=== PATIENT | male | born 1965 | race Hispanic/Latino ===

== ENCOUNTER 2020-08-16 21:41 | Emergency (ER) | payer SELFPAY ==
--- NOTE | 2020-08-16 22:56 | RAD ---
Exam: Chest one view HISTORY:Pain. Syncope. Comparison: None FINDINGS: Cardiac silhouette:Upper normal cardiac silhouette Aorta: Unremarkable Pulmonary vessels: Mild pulmonary vascular prominence Costophrenic angles: Clear LUNGS: Scattered interstitial opacities which may represent edema or infiltrate. Pneumothorax: None Osseous abnormalities: None IMPRESSION: 1. Prominence of vasculature and interstitium. Correlate for edema versus infiltrate.
[2020-08-16 23:19] LABS: #Eosinphils 0.2 thou/uL (0.0-0.7); #Lymphocytes 1.2 thou/uL (1.20-3.40); #Monocytes 0.8 thou/uL (0.11-0.59); #Neutrophils 3.2 thou/uL (1.40-6.50); %Basophils 0.3 % (0.0-1.0); %Eosinophils 4.4 % (0.0-10.0); %Lymphocytes 22.6 % (21.0-51.0); %Neutrophils 58.7 % (42.0-75.0); Hemoglobin 12.6 g/dL (14.0-18.0); Mean Corpuscular HGB CONC 33.8 g/dL (32.0-36.0); Mean Corpuscular Hemoglobin 28.7 pg (27.0-31.0); Mean Corpuscular Volume 84.9 fL (78.0-98.0); Mean Platelet Volume 8.3 fL (7.4-10.4); Platelet Count 185 thou/uL (130-400); Red Blood Cell (RBC) Count 4.38 mill/uL (4.70-6.10); White Blood Cell (WBC) Count 5.5 thou/uL (4.8-10.8)
[2020-08-16 23:40] LABS: ALT (SGPT) 13 U/L (8-55); AST (SGOT) 20 U/L (5-34); Albumin 4.1 g/dL (3.5-5.0); Alkaline Phosphatase 106 U/L (40-110); Anion Gap 16 mmol/L (10-20); BUN (Urea Nitrogen) 13 mg/dL (8.4-25.7); Bilirubin, Total 0.2 mg/dL (0.2-1.2); Calc. Creatinine Clearance 0 mL/min (70-130); Calcium 9.8 mg/dL (7.8-10.44); Carbon Dioxide 24 mmol/L (22-29); Chloride 103 mmol/L (98-107); Globulin 4.2 g/dL (2.4-3.5); Glucose 100 mg/dL (70-105); Lipase 43 U/L (8-78); Potassium 3.9 mmol/L (3.5-5.1); Protein, Total 8.3 g/dL (6.0-8.3); Sodium 139 mmol/L (136-145)
--- NOTE | 2020-08-31 15:57 | EKG ---
Test Reason : Blood Pressure : / mmHG Vent. Rate : 067 BPM Atrial Rate : 067 BPM P-R Int : 116 ms QRS Dur : 096 ms QT Int : 384 ms P-R-T Axes : 047 077 039 degrees QTc Int : 405 ms Normal sinus rhythm Normal ECG Confirmed by DEQUAN RUIZ DO ([id number]), editor city KAY LAMA ([id number]) on 08/31/2020 3:56:44 PM Referred By: Confirmed By:DEQUAN RUIZ DO
== END 2020-08-17 02:30 | disposition home or self-care (01) ==
LOC: ERS 21:41
DX: R55 Syncope and collapse (principal)
CPT/HCPCS: 71045; 80053; 83690; 83880; 84484; 85025; 93005; 94760

== ENCOUNTER 2024-03-12 19:52 | Inpatient (IN) | payer SELFPAY ==
[~2024-03-12 19:52] MED LIST: Iopamidol-370 76% 500 ML MDV (1 ML CHARGE) ONE
[2024-03-12] MEDS ORDERED: Ondansetron PF 4 MG/2 ML Vial ONE (20:31)
[2024-03-12] MEDS ORDERED: Famotidine/PF 20 mg/2ml Vial ONE (20:31)
[2024-03-12 20:57] LABS: ALT (SGPT) 24 U/L (8-55); AST (SGOT) 24 U/L (5-34); Albumin 2.7 g/dL (3.5-5.0); Alkaline Phosphatase 124 U/L (40-110); Anion Gap 13 mmol/L (10-20); BUN (Urea Nitrogen) 18 mg/dL (8.4-25.7); Bilirubin, Total 0.2 mg/dL (0.2-1.2); CK (CPK) 55 U/L (30-200); Calc. Creatinine Clearance 0 mL/min (70-130); Calcium 9.7 mg/dL (7.8-10.44); Carbon Dioxide 21 mmol/L (22-29); Chloride 105 mmol/L (98-107); Estimated GFR 106; Globulin 5.1 g/dL (2.4-3.5); Glucose 136 mg/dL (70-105); Lipase 56 U/L (8-78); Magnesium 2.1 mg/dL (1.6-2.6); Potassium 3.4 mmol/L (3.5-5.1); Protein, Total 7.8 g/dL (6.0-8.3); Sodium 136 mmol/L (136-145)
[2024-03-12 20:58] LABS: #Basophils Less than 0.03 10x3/uL (0.0-0.2); %Basophils 0.2 % (0.0-1.0); %Eosinophils 0.6 % (0.0-10.0); %Lymphocytes 18.1 % (21.0-51.0); %Monocytes 18.6 % (0.0-10.0); %Neutrophils 60.9 % (42.0-75.0); Hematocrit 31.8 % (42.0-52.0); Hemoglobin 10.9 g/dL (14.0-18.0); Mean Corpuscular HGB CONC 34.3 g/dL (32.0-36.0); Mean Corpuscular Hemoglobin 27.8 pg (27.0-31.0); Mean Corpuscular Volume 81.1 fL (78.0-98.0); Mean Platelet Volume 11.4 fL (7.4-10.4); Platelet Count 189 10x3/uL (130-400); RBC Distribution Width 13.7 % (11.5-14.5); Red Blood Cell (RBC) Count 3.92 mill/uL (4.70-6.10)
[2024-03-12 21:00] LABS: Troponin I Less than 0.010 ng/mL (< 0.028)
[2024-03-12 22:14] LABS: Bacteria/HPF None Seen HPF (None Seen); Bilirubin Negative (Negative); Blood, Urine Negative (Negative); CAUTI Indications for Culture Acute Hematuria; Clarity Clear (Clear); Glucose, Urine (Dipstick) Normal (Negative); Ketone, Urine Negative (Negative); Leukocyte Negative Leu/uL (Negative); Nitrite Negative (Negative); Protein, Urine (Dipstick) Negative (Neg-Trace); RBC/HPF 0-3 HPF (0-3); Specific Gravity, Urine 1.018 (1.002-1.036); Squamous Epithelial None Seen HPF (0-3); Urobilinogen Normal mg/dL (Less than 2); WBC/HPF 0-3 HPF (0-3)
[2024-03-12 22:16] LABS: Urine Culture Reflex No No
[2024-03-12] MEDS ORDERED: Piperacillin/Tazobactam 3.375 GM VIAL ONE (23:06)
[2024-03-12] MEDS ORDERED: Sodium Chloride 0.9% 100 ML ONE (23:06)
[2024-03-12] MEDS ORDERED: Ondansetron ODT 4 MG TAB PO PRN (23:42)
[2024-03-13] MEDS: Lactated Ringer's 1,000 ML IV SCH (01:28)
[2024-03-13 01:39] VITALS: BMI 19.8
[2024-03-13] MEDS: Piperacillin/Tazobactam 3.375 GM in Sodium Chloride 0.9% 100 ML IVPB SCH (03:42)
[2024-03-13] MEDS ORDERED: Morphine 2 MG/ML VIAL SLOW IVP PRN (05:20)
[2024-03-13] MEDS ORDERED: Electrolyte Replacement Protocol FS PRN (07:30)
[2024-03-13] MEDS: Famotidine 20 MG TAB PO SCH (07:56)
[2024-03-13] MEDS: Potassium Chloride 20 MEQ TAB PO SCH (08:46)
[2024-03-13 10:00] LABS: Hematocrit 29.4 % (42.0-52.0); Hemoglobin 9.7 g/dL (14.0-18.0); Mean Corpuscular Hemoglobin 27.5 pg (27.0-31.0); Mean Corpuscular Volume 83.3 fL (78.0-98.0); Mean Platelet Volume 10.8 fL (7.4-10.4); Platelet Count 169 10x3/uL (130-400); Red Blood Cell (RBC) Count 3.53 mill/uL (4.70-6.10)
[2024-03-13 10:27] LABS: ALT (SGPT) 18 U/L (8-55); AST (SGOT) 18 U/L (5-34); Albumin 2.3 g/dL (3.5-5.0); Alkaline Phosphatase 105 U/L (40-110); Anion Gap 11 mmol/L (10-20); BUN (Urea Nitrogen) 12 mg/dL (8.4-25.7); Bilirubin, Total 0.2 mg/dL (0.2-1.2); Calc. Creatinine Clearance 93 mL/min (70-130); Calcium 8.8 mg/dL (7.8-10.44); Carbon Dioxide 23 mmol/L (22-29); Chloride 107 mmol/L (98-107); Estimated GFR 109; Globulin 4.4 g/dL (2.4-3.5); Glucose 86 mg/dL (70-105); Potassium 3.6 mmol/L (3.5-5.1); Protein, Total 6.7 g/dL (6.0-8.3); Sodium 137 mmol/L (136-145)
[2024-03-13 10:39] LABS: Band 4 % (5-11); Eosinophils 2 % (0-10); Lymphocytes 13 % (21-51); Monocytes 10 % (0-10); Neutrophil 70 % (42-75); Platelet Adequacy Comment Platelets Normal; RBC Morphology Within Normal Limits
[2024-03-13] MEDS: Acetaminophen 325 MG TAB PO PRN (20:03)
[2024-03-13] MEDS: Enoxaparin 40 MG (0.4 mL) SYRINGE SC SCH (20:03)
[2024-03-14 05:54] LABS: Hematocrit 28.9 % (42.0-52.0); Hemoglobin 9.2 g/dL (14.0-18.0); Mean Corpuscular HGB CONC 31.8 g/dL (32.0-36.0); Mean Corpuscular Hemoglobin 27.1 pg (27.0-31.0); Mean Platelet Volume 11.1 fL (7.4-10.4); Platelet Count 181 10x3/uL (130-400); RBC Distribution Width 14.1 % (11.5-14.5)
[2024-03-14 06:01] LABS: ALT (SGPT) 13 U/L (8-55); AST (SGOT) 16 U/L (5-34); Albumin 2.1 g/dL (3.5-5.0); Alkaline Phosphatase 86 U/L (40-110); Anion Gap 11 mmol/L (10-20); BUN (Urea Nitrogen) 7 mg/dL (8.4-25.7); Bilirubin, Total 0.3 mg/dL (0.2-1.2); Calc. Creatinine Clearance 96 mL/min (70-130); Calcium 8.6 mg/dL (7.8-10.44); Carbon Dioxide 22 mmol/L (22-29); Chloride 105 mmol/L (98-107); Estimated GFR 110; Globulin 3.9 g/dL (2.4-3.5); Glucose 90 mg/dL (70-105); Potassium 3.7 mmol/L (3.5-5.1); Sodium 134 mmol/L (136-145)
[2024-03-14 06:24] LABS: Band 2 % (5-11); Lymphocytes 7 % (21-51); Monocytes 8 % (0-10); Neutrophil 83 % (42-75); Platelet Adequacy Comment Platelets Normal; Polychromasia SLIGHT = 2-3 cells HPF (0-2); RBC Morphology Within Normal Limits
[2024-03-14] MEDS: Piperacillin/Tazobactam 3.375 GM in Sodium Chloride 0.9% 100 ML IVPB SCH (09:37)
[2024-03-14] MEDS ORDERED: Piperacillin/Tazobactam 3.375 GM in Sodium Chloride 0.9% 100 ML IVPB SCH (12:00)
[2024-03-14] MEDS: Enoxaparin 30 MG (0.3 mL) SYRINGE SC SCH (20:46)
[2024-03-15 05:45] LABS: #Basophils Less than 0.03 10x3/uL (0.0-0.2); %Basophils 0.3 % (0.0-1.0); %Eosinophils 1.1 % (0.0-10.0); %Lymphocytes 15.7 % (21.0-51.0); %Monocytes 7.3 % (0.0-10.0); %Neutrophils 74.8 % (42.0-75.0); Hematocrit 32.6 % (42.0-52.0); Hemoglobin 10.4 g/dL (14.0-18.0); Mean Corpuscular HGB CONC 31.9 g/dL (32.0-36.0); Mean Corpuscular Hemoglobin 26.9 pg (27.0-31.0); Mean Corpuscular Volume 84.2 fL (78.0-98.0); Mean Platelet Volume 10.9 fL (7.4-10.4); Platelet Count 223 10x3/uL (130-400); Red Blood Cell (RBC) Count 3.87 mill/uL (4.70-6.10)
[2024-03-15 06:28] LABS: ALT (SGPT) 14 U/L (8-55); AST (SGOT) 19 U/L (5-34); Albumin 2.2 g/dL (3.5-5.0); Alkaline Phosphatase 90 U/L (40-110); Anion Gap 12 mmol/L (10-20); BUN (Urea Nitrogen) 5 mg/dL (8.4-25.7); Bilirubin, Total 0.4 mg/dL (0.2-1.2); Calc. Creatinine Clearance 94 mL/min (70-130); Calcium 8.9 mg/dL (7.8-10.44); Carbon Dioxide 23 mmol/L (22-29); Chloride 103 mmol/L (98-107); Estimated GFR 110; Globulin 4.5 g/dL (2.4-3.5); Glucose 85 mg/dL (70-105); Potassium 3.8 mmol/L (3.5-5.1); Protein, Total 6.7 g/dL (6.0-8.3); Sodium 134 mmol/L (136-145)
[2024-03-15 08:01] VITALS: BP 120/61; TEMP 98.5
== END 2024-03-15 16:06 | disposition home or self-care (01) | DRG 373 ==
LOC: ERS 19:52 → T4-B 23:09
PROVIDERS: ADMIT Family Medicine; ATTEND Family Medicine
DX: K35.33 Acute appendicitis with perforation, localized peritonitis, and gangrene, with abscess (principal); E87.6 Hypokalemia; D64.9 Anemia, unspecified
CPT/HCPCS: 36415; 36416; 71045; 74177; 76705; 80053; 81001; 82550; 83690; 83735; 83880; 84484; 85025; 93005; 96361; 96365; 96375; J1650; J2405; J2543; J3490; J7120; Q9967; S0028

== ENCOUNTER 2024-04-18 15:09 | Inpatient (IN) | payer SELFPAY ==
[2024-04-18] MEDS ORDERED: Ondansetron PF 4 MG/2 ML Vial ONE (16:28)
[2024-04-18] MEDS ORDERED: Morphine 4 MG/ML VIAL ONE (16:28)
[2024-04-18 16:33] LABS: #Basophils Less than 0.03 10x3/uL (0.0-0.2); %Basophils 0.3 % (0.0-1.0); %Eosinophils 0.8 % (0.0-10.0); %Lymphocytes 25.1 % (21.0-51.0); %Monocytes 12.6 % (0.0-10.0); %Neutrophils 60.8 % (42.0-75.0); Hematocrit 29.7 % (42.0-52.0); Hemoglobin 9.8 g/dL (14.0-18.0); Mean Corpuscular Hemoglobin 26.7 pg (27.0-31.0); Mean Corpuscular Volume 80.9 fL (78.0-98.0); Mean Platelet Volume 9.6 fL (7.4-10.4); Platelet Count 279 10x3/uL (130-400); RBC Distribution Width 13.6 % (11.5-14.5); Red Blood Cell (RBC) Count 3.67 mill/uL (4.70-6.10)
[2024-04-18 16:46] LABS: ALT (SGPT) 19 U/L (8-55); AST (SGOT) 21 U/L (5-34); Albumin 2.8 g/dL (3.5-5.0); Alkaline Phosphatase 66 U/L (40-110); Anion Gap 13 mmol/L (10-20); BUN (Urea Nitrogen) 9 mg/dL (8.4-25.7); Bilirubin, Total 0.4 mg/dL (0.2-1.2); Calc. Creatinine Clearance 0 mL/min (70-130); Calcium 9.3 mg/dL (7.8-10.44); Carbon Dioxide 22 mmol/L (22-29); Chloride 105 mmol/L (98-107); Estimated GFR 107; Globulin 4.4 g/dL (2.4-3.5); Glucose 91 mg/dL (70-105); Lipase 18 U/L (8-78); Potassium 3.8 mmol/L (3.5-5.1); Protein, Total 7.2 g/dL (6.0-8.3); Sodium 136 mmol/L (136-145)
[2024-04-18 17:09] LABS: Bacteria/HPF None Seen HPF (None Seen); Bilirubin Negative (Negative); Blood, Urine Negative (Negative); CAUTI Indications for Culture Pelvic or flank pain; Clarity Clear (Clear); Glucose, Urine (Dipstick) Normal (Negative); Ketone, Urine 10 mg/dL (Negative); Leukocyte Negative Leu/uL (Negative); Nitrite Negative (Negative); Protein, Urine (Dipstick) 20 mg/dL (Neg-Trace); RBC/HPF 0-3 HPF (0-3); Specific Gravity, Urine 1.021 (1.002-1.036); Squamous Epithelial 0-3 HPF (0-3); Urobilinogen Normal mg/dL (Less than 2); WBC/HPF 0-3 HPF (0-3); pH, Urine 5.5 (5.0-9.0)
[2024-04-18 17:11] LABS: Urine Culture Reflex No No
[2024-04-18] MEDS ORDERED: Ondansetron ODT 4 MG TAB PO PRN (19:28)
[2024-04-18] MEDS ORDERED: Morphine 2 MG/ML VIAL SLOW IVP PRN (19:36)
[2024-04-18 20:51] VITALS: BMI 19.8
[2024-04-18] MEDS: Dextrose 5%-Lactated Ringers 1,000 ML IV SCH (21:11)
[2024-04-19 05:33] LABS: #Basophils 0.03 10x3/uL (0.0-0.2); %Basophils 0.5 % (0.0-1.0); %Eosinophils 1.8 % (0.0-10.0); %Lymphocytes 24.7 % (21.0-51.0); %Monocytes 15.9 % (0.0-10.0); %Neutrophils 56.5 % (42.0-75.0); Hematocrit 26.3 % (42.0-52.0); Hemoglobin 8.4 g/dL (14.0-18.0); Mean Corpuscular HGB CONC 31.9 g/dL (32.0-36.0); Mean Corpuscular Hemoglobin 26.3 pg (27.0-31.0); Mean Corpuscular Volume 82.2 fL (78.0-98.0); Mean Platelet Volume 9.8 fL (7.4-10.4); Platelet Count 233 10x3/uL (130-400); RBC Distribution Width 13.5 % (11.5-14.5)
[2024-04-19 05:53] LABS: ALT (SGPT) 14 U/L (8-55); AST (SGOT) 15 U/L (5-34); Albumin 2.4 g/dL (3.5-5.0); Alkaline Phosphatase 55 U/L (40-110); Anion Gap 9 mmol/L (10-20); BUN (Urea Nitrogen) 7 mg/dL (8.4-25.7); Bilirubin, Total 0.4 mg/dL (0.2-1.2); Calc. Creatinine Clearance 94 mL/min (70-130); Calcium 8.9 mg/dL (7.8-10.44); Carbon Dioxide 26 mmol/L (22-29); Chloride 104 mmol/L (98-107); Estimated GFR 110; Globulin 3.7 g/dL (2.4-3.5); Glucose 108 mg/dL (70-105); Potassium 3.3 mmol/L (3.5-5.1); Protein, Total 6.1 g/dL (6.0-8.3); Sodium 136 mmol/L (136-145)
[2024-04-19] MEDS ORDERED: Potassium Chloride 20 MEQ in Premix 2 BAG IVPB SCH (06:45)
[2024-04-19] MEDS: Enoxaparin 40 MG (0.4 mL) SYRINGE SC SCH (08:30)
[2024-04-19] MEDS: Potassium Chloride 20 MEQ in Premix 1 BAG IVPB SCH (08:30)
[2024-04-19] MEDS ORDERED: Acetaminophen 325 MG TAB PO PRN (09:57)
[2024-04-19 10:07] VITALS: BMI 19.8
[2024-04-19] MEDS: Polyethylene Glycol 3350 17 GM Packet PO SCH (10:33)
[2024-04-19] MEDS: LevoFLOXacin 750 MG TAB PO SCH (12:34)
[2024-04-19] MEDS: Bisacodyl 5 MG TAB PO SCH (15:14)
[2024-04-19] MEDS: Lactated Ringer's 1,000 ML IV SCH (23:11)
[2024-04-20 06:11] LABS: #Basophils Less than 0.03 10x3/uL (0.0-0.2); %Basophils 0.3 % (0.0-1.0); %Eosinophils 0.8 % (0.0-10.0); %Lymphocytes 22.9 % (21.0-51.0); %Monocytes 10.7 % (0.0-10.0); %Neutrophils 64.8 % (42.0-75.0); Hematocrit 31.3 % (42.0-52.0); Mean Corpuscular HGB CONC 31.9 g/dL (32.0-36.0); Mean Corpuscular Hemoglobin 25.9 pg (27.0-31.0); Mean Corpuscular Volume 81.1 fL (78.0-98.0); Mean Platelet Volume 9.7 fL (7.4-10.4); Platelet Count 275 10x3/uL (130-400); RBC Distribution Width 13.6 % (11.5-14.5); Red Blood Cell (RBC) Count 3.86 mill/uL (4.70-6.10)
[2024-04-20 06:25] LABS: ALT (SGPT) 16 U/L (8-55); AST (SGOT) 17 U/L (5-34); Albumin 2.5 g/dL (3.5-5.0); Alkaline Phosphatase 67 U/L (40-110); Anion Gap 15 mmol/L (10-20); BUN (Urea Nitrogen) 5 mg/dL (8.4-25.7); Bilirubin, Total 0.5 mg/dL (0.2-1.2); Calc. Creatinine Clearance 94 mL/min (70-130); Calcium 9.2 mg/dL (7.8-10.44); Carbon Dioxide 24 mmol/L (22-29); Chloride 102 mmol/L (98-107); Estimated GFR 110; Globulin 4.1 g/dL (2.4-3.5); Glucose 84 mg/dL (70-105); Potassium 3.8 mmol/L (3.5-5.1); Protein, Total 6.6 g/dL (6.0-8.3); Sodium 137 mmol/L (136-145)
[2024-04-20] MEDS: LevoFLOXacin 750 MG TAB PO SCH (06:48)
[2024-04-20] MEDS: Enoxaparin 30 MG (0.3 mL) SYRINGE SC SCH (08:22)
[2024-04-20] MEDS: metroNIDAZOLE 500 MG TAB PO SCH (08:22)
[2024-04-20] MEDS: Polyethylene Glycol 3350 17 GM Packet PO SCH (08:22)
[2024-04-20] MEDS: Bisacodyl 5 MG TAB PO SCH (08:23)
[2024-04-20 10:36] VITALS: TEMP 97.4
[2024-04-20 13:42] VITALS: BP 104/60
== END 2024-04-20 16:15 | disposition home or self-care (01) | DRG 388 ==
LOC: ERS 15:09 → SURG A 19:15 → OBSVTOIN 04-19 13:06
PROVIDERS: ADMIT Family Medicine; ATTEND Family Medicine
DX: K56.51 Intestinal adhesions [bands], with partial obstruction (principal); K65.1 Peritoneal abscess; R64 Cachexia; Z68.1 Body mass index [BMI] 19.9 or less, adult; D64.9 Anemia, unspecified; E87.6 Hypokalemia; E88.09 Other disorders of plasma-protein metabolism, not elsewhere classified
CPT/HCPCS: 36415; 74177; 80053; 81001; 83690; 84145; 85025; 86141; 96374; 96375; 96376; G0378; J1650; J2272; J2405; J3480; Q9967